=== PATIENT | female | born 1975 | race Two or more races ===

== ENCOUNTER → 2019-03-12 | Outpatient (CLI) | payer OTHER ==
[2019-03-12 09:27] LABS: microscopic required? YES; urine erythrocyte NEGATIVE (NEGATIVE)
[2019-03-12 10:44] LABS: SODIUM SERUM 139 mmol/L (136-145)
[2019-03-12 10:45] LABS: ALBUMIN 3.8 g/dL (3.4-5.0); ALT/SGPT 23 U/L (14-59); AST/SGOT 14 U/L (15-37); BILIRUBIN TOTAL 0.55 mg/dL (0.20-1.00); CALCIUM 8.6 mg/dL (8.5-10.1); CARBON DIOXIDE 29 mmol/L (21-32); CHLORIDE SERUM 103 mmol/L (98-107); CREATININE SERUM 0.8 mg/dL (0.6-1.0); GFR1 > 60 mL/min; GLUCOSE SERUM 86 mg/dL (74-106); POTASSIUM SERUM 3.6 mmol/L (3.5-5.1); TOTAL PROTEIN, SERUM 7.6 g/dL (6.4-8.2)
[2019-03-12 10:46] LABS: ALKALINE PHOSPHATASE 44 U/L (46-116); CHOLESTEROL 174 mg/dL (<200); CHOLESTEROL/HDL RATIO 2.8; HDL CHOLESTEROL 62 mg/dL (40-60); TRIGLYCERIDES 48 mg/dL (<150)
[2019-03-12 11:08] LABS: RED CELL DISTRIBUTION WIDTH 14.2 % (11.5-14.5)
[2019-03-12 11:09] LABS: PLATELET COUNT 125 x10^3mcL (130-400)
[2019-03-12 11:16] LABS: MONOCYTE 9 % (0-7); SEGMENTED NEUTROPHILS 56 % (37-75)
[2019-03-12 11:18] LABS: PLATELET MORPHOLOGY LARGE PLATELET SEEN
[2019-03-12 11:20] LABS: rbc morphology (normal/abnorm) NORMAL (NORMAL)
== END | disposition home or self-care (01) ==
LOC: LB 07:59
DX: Z00.00 Encounter for general adult medical examination without abnormal findings (principal)
CPT/HCPCS: 87491; 87591